=== PATIENT | female | born 2000 | race Caucasian/White ===

== ENCOUNTER 2022-03-05 20:51 | Emergency (ER) | payer OTHER, SELFPAY ==
[2022-03-05 20:51] VITALS: BP 142/73; PULSE 80; RESP 16; TEMP 36.6; O2SAT 98; BMI 18.1
--- NOTE | 2022-03-05 20:59 | EX.ED.DYSGE1 ---
HPI History of Present Illness Chief Complaint: Abd Pain Informant: patient Onset/Context/Timing Onset: Yesterday Context: Gradual Onset Timing: Waxes and wanes Current Severity: Moderate Maximum Severity: Moderate Narrative Narrative: Patient presents secondary to epigastric pain. She states she is a pain in the epigastrium and lower sternal area that radiates into her back. Nausea but no vomiting. She does report increased belching. Pain is worse when she eats. No fever or chills. No prior abdominal surgeries. [facility] Medical History (Updated 03/05/22 @ 21:[address] Giovanna Live MD) Non-celiac gluten sensitivity Medical History no medical history no medical history Home Medications bupropion HCl 300 mg 24 hr tablet, extended release 1 tab PO DAILY 03/05/22 [History Last Taken Unknown] omeprazole 40 mg capsule,delayed release 40 mg PO DAILY 4 weeks #28 caps 03/05/22 [Rx Last Taken Unknown] Allergy/AdvReac Type Severity Reaction Status Date / Time No Known Allergies Allergy Verified 03/05/22 20:53 Social History Smoking Status: Never smoker ROS ROS ED Constitutional Constitutional ED: Denies chills or fever(s) Eyes Eyes: Denies change in vision or discharge from eye(s) ENT ENT ED: Denies discharge from eye(s), rhinorrhea or sore throat Cardiovascular Cardiovascular: Denies chest pain or palpitations Respiratory/Chest Respiratory/Chest: Denies cough or dyspnea Gastrointestinal Gastrointestinal: Reports abdominal pain and nausea; Denies diarrhea or vomiting Genitourinary Genitourinary ED: Denies dysuria Musculoskeletal Musculoskeletal: Reports back pain; Denies extremity pain Integumentary Denies Abrasions or rash Neurologic Neurologic: Denies headache(s) or weakness Allergic/Immunologic Allergic/Immunologic ED: Denies lip swelling or urticaria EXAM Physical Exam Const Vital Signs: 03/05/22 20:51 Temperature 97.8 F Temperature Source Temporal Pulse Rate 80 Respiratory Rate 16 Blood Pressure 142/73 H Blood Pressure Mean 96 Pulse Ox 98 Oxygen Delivery Method Room Air Positive well nourished and well developed General Appearance ED: well developed HEENT Reports normocephalic and head/scalp atraumatic Eyes PERRL and EOMs intact bilaterally Neck supple Chest Wall inspection of chest normal and palpation of chest normal Resp normal respiratory effort and clear to auscultation bilaterally Cardio regular rate and regular rhythm GI GI Narrative: Tenderness in the epigastrium. No guarding or rebound. Hypoactive but present bowel sounds noted. Palpation: soft Back/Spine no CVA tenderness Back/Spine Narrative: No reproducible back pain. Extremity normal to inspection Neuro oriented x3 and no sensory deficits noted Sensorium / Orientation: alert Motor Exam: strength 5/5 throughout Psych mental status grossly normal Skin no rashes or lesions noted MDM MDM MDM Narrative Medical decision making narrative: Patient was given a GI cocktail as well as a dose of Protonix. Lab work obtained. Lab Data Attestation: I reviewed the patient's lab results. Labs: Laboratory Results - last 24 hr 03/05/22 03/05/22 21:07 21:07 WBC 7.2 RBC 4.21 Hgb 12.1 Hct 37.3 MCV 88.6 MCH 28.7 MCHC 32.4 RDW Std Deviation 42.0 RDW Coeff of Song 12.9 Plt Count 315 MPV 9.1 Immature Gran % (Auto) 0.100 Neut % (Auto) 50.4 Lymph % (Auto) 33.7 Tama % (Auto) 8.5 Eos % (Auto) 6.0 H Baso % (Auto) 1.3 H Absolute Neuts (auto) 3.6 Absolute Lymphs (auto) 2.41 Nucleated RBC % 0 Sodium 141 Potassium 3.9 Chloride 107 Carbon Dioxide 27.0 Anion Gap 7 BUN 12 Creatinine 0.96 Estim Creat Clear Calc 87.74 Est GFR (MDRD) Af Amer 96 Est GFR (MDRD) Non-Af 79 BUN/Creatinine Ratio 12.5 Glucose 83 Calcium 9.0 Total Bilirubin 0.20 Direct Bilirubin 0.07 AST 14 L ALT 16 Alkaline Phosphatase 24 L Total Protein 7.3 Albumin 3.8 Globulin 3.5 Lipase 127 Treatment and Re-Evaluation Narrative: Lab work is unremarkable with normal LFTs and lipase. I believe the patient's symptoms are secondary to gastritis. She will be started on Prilosec. Return instructions provided. Discharge Plan Triage Chief Complaint: Abd Pain ED Provider: Giovanna Live Dx/Rx/DC Orders Clinical Impression: Gastritis Instructions: ED Gastritis (Adult) Prescriptions: New omeprazole 40 mg capsule,delayed release(DR/EC) 40 mg PO DAILY 28 Days Qty: 28 0RF No Action bupropion HCl 300 mg tablet extended release 24 hr 1 tab PO DAILY Label Comments: TAKE 1 TABLET BY MOUTH EVERY DAY Primary Care Provider: Tayler Durham Referrals: Tayler Durham MD [Primary Care Provider] - 10-14 Days if not better Disposition Disposition: Home, Self Care
[2022-03-05] MEDS: Mag Hydrox/Al Hydrox/Simeth 30 ML UDC PO (21:03)
[2022-03-05 21:14] LABS: Absolute Lymphocyte Count 2.41 X10^3/uL (0.83-4.51); Absolute Neutrophil Count 3.6 X10^3/uL (2.0-7.7); Basophil# 0.09 X10^3/uL; Basophil% 1.3 % (0-1); Eosinophil# 0.43 X10^3/uL; Hematocrit 37.3 % (37-47); Hemoglobin 12.1 g/dL (12.0-15.0); Lymphocyte # 2.41 X10^3/ul (0.83-4.51); Lymphocyte % 33.7 % (19-41); Mean Corp Hgb Conc 32.4 g/dL (32-36); Mean Corpuscular Hgb 28.7 pg (27.0-32.0); Mean Corpuscular Volume 88.6 fL (81-99); Mean Platelet Vol. 9.1 fl (6.2-12.0); Monocyte# 0.61 X10^3/uL; Monocyte% 8.5 % (0-10); NRBC Flagged by Analyzer 0 % (0-5); Neutrophil # 3.61 X10^3/uL (2.7-7.7); Neutrophil % 50.4 % (47-70); Platelet Count 315 K/mm3 (150-450); RBC Distribution Width CV 12.9 % (11.6-14.6); Red Blood Count 4.21 M/mm3 (4.2-5.4); White Blood Count 7.2 K/mm3 (4.4-11.0)
[2022-03-05 21:34] LABS: AST(SGOT) 14 U/L (15-37); Alanine Aminotransfer ALT/SGPT 16 U/L (13-56); Albumin, Serum 3.8 g/dL (3.2-5.0); Alkaline Phosphatase 24 U/L (45-117); Anion Gap 7 (5-15); BUN 12 mg/dL (7-18); BUN/Creat Ratio 12.5 RATIO (10-20); Bilirubin, Direct 0.07 mg/dL (0.00-0.30); Chloride 107 mmol/L (98-107); Creatinine, Serum 0.96 mg/dL (0.55-1.02); EST Glomerular Filtration Rate 79 mL/min (>60); Est Glom Filt Rate - Afr Amer 96 mL/min (>60); Estimated Creatinine Clearance 87.74 ml/min; Globulin 3.5 g/dL (2.2-4.2); Glucose 83 mg/dL (74-106); Lipase 127 U/L (73-393); Potassium 3.9 mmol/L (3.5-5.1); Protein, Total 7.3 g/dL (6.4-8.2); Sodium Level 141 mmol/L (136-145)
[2022-03-05 22:00] VITALS: BP 126/74; PULSE 82; RESP 15; O2SAT 98
== END 2022-03-05 22:01 | disposition home or self-care (01) ==
PROVIDERS: Emergency Provider Emergency Medicine; PCP Pediatrics; Visit Provider Emergency Medicine
DX: K29.70 Gastritis, unspecified, without bleeding (principal)
CPT/HCPCS: 80048; 80076; 83690; 85025; 96365; 99282; J7050; A4216